=== PATIENT | male | born 1940 | race Caucasian/White ===

== ENCOUNTER 2022-07-08 11:31 | Inpatient (IN) | payer OTHER ==
[~2022-07-08] VITALS: Ht 193 cm; Wt 120.6 kg
[~2022-07-08 11:31] MED LIST: ASPI1TAB20 PO; HYDR-4296 PO; LOVA20TA4 PO; METO-159 PO; NIAC250T26 PO; OMEP20CA74 OR
[2022-07-08] MEDS ORDERED: ASPirin 81 mg TAB PO ONE (11:45)
[2022-07-08] MEDS ORDERED: dilTIAZem 25 MG/5 ML VIAL IV ONE ×2 (11:45→12:30)
[2022-07-08] MEDS: dilTIAZem HCL 50 MG/10 ML VIAL IV ONE ×2 (12:04→12:05)
[2022-07-08 12:12] LABS: Basophils # (auto) 0.1 10 ^3/uL (0-0.2); Basophils % (auto) 1.1 % (0.0-2.0); Eosinophils # (auto) 0 10 ^3/uL (0-0.8); Eosinophils % (auto) 0.2 % (0.0-7.0); Hematocrit 43.3 % (41.0-53.0); Hemoglobin 14.2 g/dL (13.5-17.5); Lymphocytes # (auto) 0.8 10 ^3/uL (0.4-5.4); Mean Corpuscular Hemoglobin 30.6 pg (28.0-32.0); Mean Corpuscular Hgb Conc. 32.8 g/dL (32.0-36.0); Mean Corpuscular Volume 93.4 fL (80.0-100.0); Monocytes % (auto) 8.4 % (0.0-12.0); Neutrophils # (auto) 10.1 10 ^3/uL (1.6-8.6); Neutrophils % (auto) 83.3 % (37.0-80.0); Nucleated Red Blood Cells % 0.1 %; Red Blood Cells 4.63 10^6/uL (4.5-5.90); Red Cell Distribution Width 15.7 % (11.8-14.3); White Blood Cell 12.1 10^3/uL (4.4-10.8)
[2022-07-08 12:30] LABS: INR 0.93 (0.9-1.15); Partial Thromboplastin Time 23.6 sec (24.6-33.4)
[2022-07-08] MEDS ORDERED: dilTIAZem 125mg/125ml BAG KIT 125 ML IV ONE (12:30)
[2022-07-08 12:31] LABS: Albumin 3.3 g/dL (3.4-5.0); Calcium 8.5 mg/dL (8.5-10.1); Magnesium 1.8 mg/dL (1.6-2.6); Potassium 3.8 mmol/L (3.5-5.1)
[2022-07-08 12:36] LABS: BUN/Creatinine Ratio 20.4; Bilirubin, Total 0.9 mg/dL (0.2-1.0); Total Protein 6.2 g/dL (6.4-8.2)
[2022-07-08 13:45] LABS: Urine Bacteria FEW /hpf (None Seen); Urine Blood Negative /uL (Negative); Urine Specific Gravity 1.017 (1.001-1.035); Urine WBC 67 /hpf (0 - 3)
[2022-07-08] MEDS ORDERED: LABETALOL HCL 200 MG TAB PO ONE (14:00)
[2022-07-08] MEDS ORDERED: cefTRIAXone 1GM/50ML D5W 50 ML IV ONE (14:00)
[2022-07-08] MEDS ORDERED: METOPROLOL SUCCINATE XL 50 MG TAB PO ONE (15:30)
[2022-07-08] MEDS ORDERED: OMEPRAZOLE 20MG/10ML ORAL SUSP PO ONE (15:30)
[2022-07-08] MEDS ORDERED: NITROGLYCERIN 0.4 MG SL TAB SL PRN (15:30)
[2022-07-08] MEDS: MORPHINE SULFATE INJ 2 MG/ml SYRG IV PRN ×2 (17:25→22:42)
[2022-07-08] MEDS: RIVAROXABAN 20 MG TAB PO SCH (17:54)
[2022-07-08] MEDS ORDERED: METOPROLOL SUCCINATE XL 50 MG TAB PO SCH (22:00)
[2022-07-08] MEDS: AMIODARONE HCL 200 MG TAB PO SCH (22:18)
[2022-07-09] VITALS (31 sets, daily range): BP systolic 90–170; BP diastolic 41–146
[2022-07-09] MEDS ORDERED: dilTIAZem 125mg/125ml BAG KIT 125 ML IV ONE ×2 (05:07→06:00)
[2022-07-09] MEDS ORDERED: dilTIAZem HCL 50 MG/10 ML VIAL IV ONE (05:07)
[2022-07-09] MEDS ORDERED: dilTIAZem 25 MG/5 ML VIAL IV ONE (05:15)
[2022-07-09] MEDS: AMIODARONE HCL 200 MG TAB PO SCH (09:31)
[2022-07-09] MEDS: METOPROLOL SUCCINATE XL 50 MG TAB PO SCH ×2 (09:33→21:14)
[2022-07-09] MEDS: DIGOXIN (250MCG/ML) 2 ML AMPULE IV SCH ×2 (14:37→21:13)
[2022-07-09 15:30] LABS: Basophils # (auto) 0.1 10 ^3/uL (0-0.2); Basophils % (auto) 0.8 % (0.0-2.0); Eosinophils # (auto) 0.1 10 ^3/uL (0-0.8); Eosinophils % (auto) 0.6 % (0.0-7.0); Hematocrit 41.6 % (41.0-53.0); Hemoglobin 13.6 g/dL (13.5-17.5); Lymphocytes # (auto) 1.3 10 ^3/uL (0.4-5.4); Lymphocytes % (auto) 9.5 % (10.0-50.0); Mean Corpuscular Hemoglobin 30.5 pg (28.0-32.0); Mean Corpuscular Hgb Conc. 32.6 g/dL (32.0-36.0); Mean Corpuscular Volume 93.8 fL (80.0-100.0); Monocytes # (auto) 1.3 10 ^3/uL (0-1.3); Monocytes % (auto) 9.2 % (0.0-12.0); Neutrophils # (auto) 10.9 10 ^3/uL (1.6-8.6); Neutrophils % (auto) 79.9 % (37.0-80.0); Red Blood Cells 4.44 10^6/uL (4.5-5.90); Red Cell Distribution Width 16.2 % (11.8-14.3); White Blood Cell 13.7 10^3/uL (4.4-10.8)
[2022-07-09 15:50] LABS: Albumin 2.9 g/dL (3.4-5.0); Calcium 8.9 mg/dL (8.5-10.1); Potassium 3.6 mmol/L (3.5-5.1)
[2022-07-09] MEDS ORDERED: AMIODARONE 450mg/250ml AE 250 ML IV SCH (16:15)
[2022-07-09] MEDS ORDERED: MAGNESIUM SULFATE 1GM/100ML 100 ML IV PRN (16:15)
[2022-07-09 16:17] LABS: BUN/Creatinine Ratio 17.6; Bilirubin, Total 0.9 mg/dL (0.2-1.0)
[2022-07-09] MEDS: HYDROcodone-ACET 5/325MG TAB PO PRN (16:55)
[2022-07-09] MEDS: FUROSEMIDE 20 MG/2 ML VIAL IV SCH (18:22)
[2022-07-09] MEDS: RIVAROXABAN 20 MG TAB PO SCH (18:23)
[2022-07-09] MEDS ORDERED: ACETAMINOPHEN 325 MG TAB PO PRN (20:30)
[2022-07-09] MEDS ORDERED: cefTRIAXone 1GM/50ML D5W 50 ML IV ONE (20:30)
[2022-07-09] MEDS: AMIODARONE 450mg/250ml AE 250 ML IV SCH (23:02)
[2022-07-10] VITALS (27 sets, daily range): BP systolic 101–165; BP diastolic 62–140
[2022-07-10] MEDS: HYDROcodone-ACET 5/325MG TAB PO PRN ×2 (04:50→18:10)
[2022-07-10 04:57] LABS: Basophils # (auto) 0.1 10 ^3/uL (0-0.2); Basophils % (auto) 0.6 % (0.0-2.0); Eosinophils # (auto) 0.2 10 ^3/uL (0-0.8); Eosinophils % (auto) 1.3 % (0.0-7.0); Hematocrit 41.2 % (41.0-53.0); Hemoglobin 13.7 g/dL (13.5-17.5); Lymphocytes # (auto) 1.2 10 ^3/uL (0.4-5.4); Lymphocytes % (auto) 9.6 % (10.0-50.0); Mean Corpuscular Hemoglobin 31.3 pg (28.0-32.0); Mean Corpuscular Hgb Conc. 33.2 g/dL (32.0-36.0); Mean Corpuscular Volume 94.1 fL (80.0-100.0); Monocytes % (auto) 8.2 % (0.0-12.0); Neutrophils # (auto) 10.2 10 ^3/uL (1.6-8.6); Neutrophils % (auto) 80.3 % (37.0-80.0); Nucleated Red Blood Cells % 0.1 %; Red Blood Cells 4.38 10^6/uL (4.5-5.90); Red Cell Distribution Width 16.1 % (11.8-14.3); White Blood Cell 12.7 10^3/uL (4.4-10.8)
[2022-07-10 05:07] LABS: Alanine Aminotransferase 24 U/L (16-61); Albumin 2.8 g/dL (3.4-5.0); Anion Gap 10 (5-15); Aspartate Aminotransferase 15 U/L (15-37); BUN/Creatinine Ratio 22.4; Blood Urea Nitrogen 17 mg/dL (7-18); Calcium 8.3 mg/dL (8.5-10.1); Carbon Dioxide 28 mmol/L (21-32); Chloride 99 mmol/L (98-107); GFR African American 127 mL/min; GFR Non-African American 105 mL/min; Glucose 113 mg/dL (74-106); Magnesium 2.2 mg/dL (1.6-2.6); Potassium 3.8 mmol/L (3.5-5.1); Sodium 137 mmol/L (136-145)
[2022-07-10 05:10] LABS: Alkaline Phosphatase 85 U/L (45-117); Bilirubin, Total 0.8 mg/dL (0.2-1.0); Total Protein 5.9 g/dL (6.4-8.2)
[2022-07-10] MEDS: FUROSEMIDE 20 MG/2 ML VIAL IV SCH ×2 (06:00→18:00)
[2022-07-10] MEDS: cefTRIAXone 1GM/50ML D5W 50 ML IV SCH (09:07)
[2022-07-10] MEDS: METOPROLOL SUCCINATE XL 50 MG TAB PO SCH (09:08)
[2022-07-10] MEDS: POTASSIUM CHL 20 Meq TABLET PO SCH (09:08)
[2022-07-10] MEDS: AMIODARONE 450mg/250ml AE 250 ML IV SCH (09:09)
[2022-07-10] MEDS: MORPHINE SULFATE INJ 2 MG/ml SYRG IV PRN ×2 (10:54→21:34)
[2022-07-10] MEDS ORDERED: FURO20TA3 PO (13:16)
[2022-07-10] MEDS ORDERED: TRAM50TA2 PO (13:16)
[2022-07-10] MEDS ORDERED: METO1TAB9 PO (13:16)
[2022-07-10] MEDS ORDERED: SIMV-8 PO (13:16)
[2022-07-10] MEDS ORDERED: POTA10TA32 PO (13:16)
[2022-07-10] MEDS ORDERED: HYDR25TA4 PO (13:16)
[2022-07-10] MEDS ORDERED: MIDAZOLAM HCL 2MG/2ML 2ml VIAL (1mg/ml) IV ONE (14:15)
[2022-07-10] MEDS ORDERED: MIDAZOLAM HCL 5 MG/ML-1ML VIAL ONE (14:19)
[2022-07-10] MEDS ORDERED: SOTALOL HCL 80 MG TAB PO ONE (14:45)
[2022-07-10] MEDS ORDERED: MIDAZOLAM HCL 2MG/2ML 2ml VIAL (1mg/ml) IM ONE (14:45)
[2022-07-10] MEDS: RIVAROXABAN 20 MG TAB PO SCH (18:07)
[2022-07-10] MEDS: SOTALOL HCL 80 MG TAB PO SCH (21:33)
[2022-07-11] VITALS (10 sets, daily range): BP systolic 85–117; BP diastolic 39–94
[2022-07-11] MEDS: HYDROcodone-ACET 5/325MG TAB PO PRN ×3 (02:06→19:59)
[2022-07-11 04:32] LABS: Basophils # (auto) 0.1 10 ^3/uL (0-0.2); Basophils % (auto) 0.6 % (0.0-2.0); Eosinophils # (auto) 0.3 10 ^3/uL (0-0.8); Hematocrit 40.1 % (41.0-53.0); Lymphocytes # (auto) 0.8 10 ^3/uL (0.4-5.4); Lymphocytes % (auto) 7.5 % (10.0-50.0); Mean Corpuscular Hemoglobin 30.6 pg (28.0-32.0); Mean Corpuscular Hgb Conc. 32.4 g/dL (32.0-36.0); Mean Corpuscular Volume 94.3 fL (80.0-100.0); Monocytes # (auto) 0.8 10 ^3/uL (0-1.3); Monocytes % (auto) 7.1 % (0.0-12.0); Neutrophils # (auto) 9.1 10 ^3/uL (1.6-8.6); Neutrophils % (auto) 81.8 % (37.0-80.0); Nucleated Red Blood Cells % 0.2 %; Red Blood Cells 4.25 10^6/uL (4.5-5.90); White Blood Cell 11.2 10^3/uL (4.4-10.8)
[2022-07-11 04:50] LABS: Albumin 2.4 g/dL (3.4-5.0); Calcium 8.4 mg/dL (8.5-10.1); Magnesium 2.4 mg/dL (1.6-2.6); Potassium 3.5 mmol/L (3.5-5.1)
[2022-07-11 04:53] LABS: BUN/Creatinine Ratio 23.3
[2022-07-11 04:56] LABS: Bilirubin, Total 0.5 mg/dL (0.2-1.0); Total Protein 6.3 g/dL (6.4-8.2)
[2022-07-11] MEDS: POTASSIUM CHL 20 Meq TABLET PO SCH (09:10)
[2022-07-11] MEDS: SOTALOL HCL 80 MG TAB PO SCH ×3 (09:11→21:27)
[2022-07-11] MEDS: FUROSEMIDE 20 MG/2 ML VIAL IV SCH (09:12)
[2022-07-11] MEDS: cefTRIAXone 1GM/50ML D5W 50 ML IV SCH (09:12)
[2022-07-11] MEDS ORDERED: POTASSIUM CHLORIDE 20 MEQ, LIDOCAINE 1% (LOCAL ANESTH.) 2 ML in SODIUM CHL 0.9% 100 ML IV ONE (09:30)
[2022-07-11] MEDS: MEROPENEM 1GM IVPB 100 ML IV SCH ×2 (16:00→23:08)
[2022-07-11] MEDS: RIVAROXABAN 20 MG TAB PO SCH (17:46)
[2022-07-11] MEDS: MAGNESIUM OXIDE 400 MG TAB PO SCH (22:45)
[2022-07-12] VITALS (16 sets, daily range): BP systolic 104–132; BP diastolic 59–97
[2022-07-12] MEDS: HYDROcodone-ACET 5/325MG TAB PO PRN ×2 (02:54→17:53)
[2022-07-12 04:42] LABS: Basophils # (auto) 0.1 10 ^3/uL (0-0.2); Basophils % (auto) 1.5 % (0.0-2.0); Eosinophils # (auto) 0.3 10 ^3/uL (0-0.8); Eosinophils % (auto) 3.6 % (0.0-7.0); Hematocrit 44.9 % (41.0-53.0); Hemoglobin 14.9 g/dL (13.5-17.5); Lymphocytes # (auto) 1.3 10 ^3/uL (0.4-5.4); Lymphocytes % (auto) 15.4 % (10.0-50.0); Mean Corpuscular Hemoglobin 30.9 pg (28.0-32.0); Mean Corpuscular Hgb Conc. 33.2 g/dL (32.0-36.0); Mean Corpuscular Volume 93.1 fL (80.0-100.0); Monocytes # (auto) 0.8 10 ^3/uL (0-1.3); Monocytes % (auto) 9.8 % (0.0-12.0); Neutrophils # (auto) 5.7 10 ^3/uL (1.6-8.6); Neutrophils % (auto) 69.7 % (37.0-80.0); Red Blood Cells 4.82 10^6/uL (4.5-5.90); Red Cell Distribution Width 15.6 % (11.8-14.3); White Blood Cell 8.2 10^3/uL (4.4-10.8)
[2022-07-12 04:50] LABS: Albumin 2.4 g/dL (3.4-5.0); Calcium 8.5 mg/dL (8.5-10.1); Magnesium 2.4 mg/dL (1.6-2.6); Potassium 4.1 mmol/L (3.5-5.1)
[2022-07-12 04:53] LABS: BUN/Creatinine Ratio 26.9; Bilirubin, Total 0.4 mg/dL (0.2-1.0); Total Protein 6.6 g/dL (6.4-8.2)
[2022-07-12] MEDS: MORPHINE SULFATE INJ 2 MG/ml SYRG IV PRN ×3 (06:10→23:23)
[2022-07-12] MEDS: MEROPENEM 1GM IVPB 100 ML IV SCH ×3 (06:17→21:39)
[2022-07-12] MEDS: MAGNESIUM OXIDE 400 MG TAB PO SCH ×2 (09:59→21:40)
[2022-07-12] MEDS: POTASSIUM CHL 20 Meq TABLET PO SCH (09:59)
[2022-07-12] MEDS: SOTALOL HCL 80 MG TAB PO SCH ×2 (10:01→21:40)
[2022-07-12] MEDS: DIGOXIN 0.25 MG TAB PO SCH (10:02)
[2022-07-12] MEDS: FUROSEMIDE 20 MG/2 ML VIAL IV SCH (10:04)
[2022-07-12 10:18] LABS: BUN/Creatinine Ratio 22.7; Calcium 8.5 mg/dL (8.5-10.1); Potassium 3.9 mmol/L (3.5-5.1)
[2022-07-12] MEDS: dilTIAZem HCL 60 MG TAB PO SCH ×2 (14:35→21:40)
[2022-07-12] MEDS ORDERED: RIV20T PO (17:29)
[2022-07-12] MEDS ORDERED: DIGO0.25 PO (17:29)
[2022-07-12] MEDS ORDERED: DILT60TA2 PO (17:29)
[2022-07-12] MEDS ORDERED: SOTA80TA20 PO (17:29)
[2022-07-12] MEDS: RIVAROXABAN 20 MG TAB PO SCH (18:24)
[2022-07-13] MEDS: HYDROcodone-ACET 5/325MG TAB PO PRN (01:09)
[2022-07-13 05:00] VITALS: BP 129/78
[2022-07-13] MEDS: MEROPENEM 1GM IVPB 100 ML IV SCH ×2 (05:33→14:00)
[2022-07-13] MEDS: dilTIAZem HCL 60 MG TAB PO SCH ×2 (05:39→14:00)
[2022-07-13 07:13] LABS: Basophils # (auto) 0.1 10 ^3/uL (0-0.2); Eosinophils # (auto) 0.2 10 ^3/uL (0-0.8); Eosinophils % (auto) 2.7 % (0.0-7.0); Hematocrit 40.3 % (41.0-53.0); Hemoglobin 13.3 g/dL (13.5-17.5); Lymphocytes # (auto) 1.2 10 ^3/uL (0.4-5.4); Lymphocytes % (auto) 16.4 % (10.0-50.0); Mean Corpuscular Hemoglobin 30.7 pg (28.0-32.0); Mean Corpuscular Hgb Conc. 33.1 g/dL (32.0-36.0); Mean Corpuscular Volume 92.9 fL (80.0-100.0); Monocytes # (auto) 0.7 10 ^3/uL (0-1.3); Monocytes % (auto) 9.7 % (0.0-12.0); Neutrophils # (auto) 5.3 10 ^3/uL (1.6-8.6); Neutrophils % (auto) 70.2 % (37.0-80.0); Nucleated Red Blood Cells % 0.1 %; Red Blood Cells 4.34 10^6/uL (4.5-5.90); Red Cell Distribution Width 15.7 % (11.8-14.3); White Blood Cell 7.5 10^3/uL (4.4-10.8)
[2022-07-13 07:36] LABS: Potassium 4.4 mmol/L (3.5-5.1)
[2022-07-13 07:45] LABS: BUN/Creatinine Ratio 27.1; Calcium 8.4 mg/dL (8.5-10.1)
[2022-07-13 08:00] VITALS: BP 115/74
[2022-07-13] MEDS ORDERED: NITR-52 PO (08:01)
[2022-07-13 09:00] VITALS: BP 115/74
[2022-07-13] MEDS: SOTALOL HCL 80 MG TAB PO SCH (09:04)
[2022-07-13] MEDS: DIGOXIN 0.25 MG TAB PO SCH (09:05)
[2022-07-13] MEDS: FUROSEMIDE 20 MG/2 ML VIAL IV SCH (09:05)
[2022-07-13] MEDS: MAGNESIUM OXIDE 400 MG TAB PO SCH (09:06)
[2022-07-13] MEDS: POTASSIUM CHL 20 Meq TABLET PO SCH (09:06)
[2022-07-13] MEDS: MORPHINE SULFATE INJ 2 MG/ml SYRG IV PRN (09:34)
[2022-07-13 12:29] VITALS: BP 115/74
[2022-07-13 13:00] VITALS: BP 115/81
== END 2022-07-13 13:00 | disposition home health service (06) | DRG 309 ==
LOC: EDBD 11:31 → ER 11:42 → TELE 15:28 → ICU WEST 07-09 08:50 → TELE-EAST 07-12 17:00
PROVIDERS: ADMIT Internal Medicine Cardiovascular Disease; ATTEND Internal Medicine Cardiovascular Disease
DX: I48.20 Chronic atrial fibrillation, unspecified (principal); I50.22 Chronic systolic (congestive) heart failure; N39.0 Urinary tract infection, site not specified; Z16.12 Extended spectrum beta lactamase (ESBL) resistance; I11.0 Hypertensive heart disease with heart failure; Z20.822 Contact with and (suspected) exposure to COVID-19; K21.9 Gastro-esophageal reflux disease without esophagitis; E87.6 Hypokalemia; Z86.73 Personal history of transient ischemic attack (TIA), and cerebral infarction without residual deficits
CPT/HCPCS: 36415; 71045; 80048; 80053; 80162; 81001; 83735; 83880; 84484; 85007; 85025; 85027; 85379; 85610; 85730; 86376; 86800; 87081; 87086; 87088; 87186; 93306; 96365; 96367; 96376; 99291; G0378; J0696; J2001; J2185; J2250

== ENCOUNTER 2022-07-24 09:02 | Inpatient (IN) | payer OTHER ==
[~2022-07-24] VITALS: Ht 193 cm; Wt 116.0 kg
[~2022-07-24 09:02] MED LIST changes: -ASPI1TAB20 PO; +DIGO0.25 PO; +DILT60TA2 PO; +FURO20TA3 PO; -HYDR-4296 PO; -LOVA20TA4 PO; -METO-159 PO; -NIAC250T26 PO; +NITR-52 PO; -OMEP20CA74 OR; +RIV20T PO; +SIMV-8 PO; +SOTA80TA20 PO; +TRAM50TA2 PO
[2022-07-24 10:40] LABS: Basophils # (auto) 0 10 ^3/uL (0-0.2); Basophils % (auto) 0.2 % (0.0-2.0); Eosinophils # (auto) 0.2 10 ^3/uL (0-0.8); Eosinophils % (auto) 2.4 % (0.0-7.0); Hemoglobin 13.6 g/dL (13.5-17.5); Lymphocytes # (auto) 1.1 10 ^3/uL (0.4-5.4); Lymphocytes % (auto) 14.8 % (10.0-50.0); Mean Corpuscular Hemoglobin 30.1 pg (28.0-32.0); Mean Corpuscular Hgb Conc. 33.9 g/dL (32.0-36.0); Mean Corpuscular Volume 88.6 fL (80.0-100.0); Monocytes # (auto) 0.2 10 ^3/uL (0-1.3); Monocytes % (auto) 2.9 % (0.0-12.0); Neutrophils # (auto) 6.1 10 ^3/uL (1.6-8.6); Neutrophils % (auto) 79.7 % (37.0-80.0); Nucleated Red Blood Cells % 0.2 %; Red Blood Cells 4.52 10^6/uL (4.5-5.90); Red Cell Distribution Width 15.8 % (11.8-14.3); White Blood Cell 7.6 10^3/uL (4.4-10.8)
[2022-07-24 10:44] LABS: Albumin 2.8 g/dL (3.4-5.0); Calcium 8.7 mg/dL (8.5-10.1); Potassium 3.5 mmol/L (3.5-5.1)
[2022-07-24 10:47] LABS: BUN/Creatinine Ratio 19.8; Bilirubin, Total 0.9 mg/dL (0.2-1.0); Total Protein 6.5 g/dL (6.4-8.2)
[2022-07-24 16:33] LABS: Urine Bacteria NONE SEEN /hpf (None Seen); Urine Blood Negative /uL (Negative); Urine Specific Gravity 1.011 (1.001-1.035); Urine WBC 1 /hpf (0 - 3)
[2022-07-24] MEDS ORDERED: ACETAMINOPHEN 325 MG TAB PO PRN (17:15)
[2022-07-24] MEDS ORDERED: ONDANSETRON HCL 4 MG/2 ML VIAL IV PRN (17:15)
[2022-07-24] MEDS ORDERED: DOCUSATE SOD 100 MG CAP PO PRN (17:15)
[2022-07-24] MEDS ORDERED: BISACODYL 10 MG RECT SUPP PR ONE (17:15)
[2022-07-24] MEDS: SODIUM CHLORIDE 0.9% 1,000 ML IV SCH (17:15)
[2022-07-24] MEDS ORDERED: MORPHINE SULFATE INJ 2 MG/ml SYRG IV PRN (17:15)
[2022-07-24] MEDS ORDERED: FLEET ENEMA(ADULT) 135 ML PR ONE (17:15)
[2022-07-24] MEDS ORDERED: FUROSEMIDE 20 MG TAB PO PRN (17:30)
[2022-07-24] MEDS ORDERED: ATORVASTATIN 20 MG TAB PO SCH (18:00)
[2022-07-24] MEDS ORDERED: RIVAROXABAN 20 MG TAB PO SCH (18:00)
[2022-07-24] MEDS ORDERED: INVANZ IM (18:13)
[2022-07-24] MEDS ORDERED: DILT40TA PO (18:13)
[2022-07-24] MEDS ORDERED: SPIR25TA PO (18:13)
[2022-07-24] MEDS ORDERED: IPRA0.00 IN (18:13)
[2022-07-24] MEDS ORDERED: FURO1TAB33 PO (18:13)
[2022-07-24] MEDS ORDERED: FUROSEMIDE 20 MG/2 ML VIAL IV ONE (18:15)
[2022-07-24] MEDS ORDERED: ERTAPENEM SOD INJ 1 GM in SODIUM CHL 0.9% 50 ML IV ONE (18:30)
[2022-07-24 18:34] LABS: Cholesterol 151 mg/dL (< 200); HDL Cholesterol 39 mg/dL (40-59); LDL Cholesterol 90 mg/dL (< 100); Triglycerides 161 mg/dL (< 150)
[2022-07-24] MEDS: SOTALOL HCL 80 MG TAB PO SCH (22:27)
[2022-07-24] MEDS: dilTIAZem HCL 60 MG TAB PO SCH (22:29)
[2022-07-25] VITALS: BP 114/71
[2022-07-25 01:14] VITALS: BP 114/71
[2022-07-25 05:00] VITALS: BP 121/78
[2022-07-25] MEDS: dilTIAZem HCL 60 MG TAB PO SCH (06:40)
[2022-07-25] MEDS: SODIUM CHLORIDE 0.9% 1,000 ML IV SCH (06:40)
[2022-07-25 06:54] LABS: Basophils # (auto) 0 10 ^3/uL (0-0.2); Basophils % (auto) 0.3 % (0.0-2.0); Eosinophils # (auto) 0.2 10 ^3/uL (0-0.8); Eosinophils % (auto) 3.2 % (0.0-7.0); Hematocrit 39.6 % (41.0-53.0); Lymphocytes # (auto) 1.4 10 ^3/uL (0.4-5.4); Lymphocytes % (auto) 20.8 % (10.0-50.0); Mean Corpuscular Hemoglobin 29.5 pg (28.0-32.0); Mean Corpuscular Volume 89.5 fL (80.0-100.0); Monocytes # (auto) 0.2 10 ^3/uL (0-1.3); Monocytes % (auto) 3.5 % (0.0-12.0); Neutrophils # (auto) 4.8 10 ^3/uL (1.6-8.6); Neutrophils % (auto) 72.2 % (37.0-80.0); Red Blood Cells 4.42 10^6/uL (4.5-5.90); Red Cell Distribution Width 16.1 % (11.8-14.3); White Blood Cell 6.6 10^3/uL (4.4-10.8)
[2022-07-25 07:07] LABS: Albumin 2.5 g/dL (3.4-5.0); Calcium 8.4 mg/dL (8.5-10.1); Potassium 3.2 mmol/L (3.5-5.1)
[2022-07-25 07:12] LABS: BUN/Creatinine Ratio 21.3; Bilirubin, Total 0.9 mg/dL (0.2-1.0); Total Protein 5.9 g/dL (6.4-8.2)
[2022-07-25 08:46] VITALS: BP 135/64
[2022-07-25] MEDS ORDERED: cefTRIAXone 1GM/50ML D5W 50 ML IV SCH (09:00)
[2022-07-25] MEDS ORDERED: DOCU-94 PO (09:22)
[2022-07-25] MEDS ORDERED: LACT10SO70 PO (09:22)
[2022-07-25] MEDS ORDERED: POLYETHYLENE GLYCOL 17 GM PWDR PO SCH (10:00)
[2022-07-25] MEDS ORDERED: DIGOXIN 0.25 MG TAB PO SCH (10:00)
[2022-07-25] MEDS ORDERED: ENOXAPARIN SOD 40 MG/0.4 ML SYRINGE SC SCH (10:00)
[2022-07-25] MEDS: LACTULOSE 20Gm/30ML SOLN PO SCH ×2 (10:00→10:14)
[2022-07-25] MEDS ORDERED: PANTOPRAZOLE 40 MG/10 ML VIAL INJ IV SCH (10:00)
[2022-07-25] MEDS: SOTALOL HCL 80 MG TAB PO SCH (10:14)
[2022-07-25 12:48] VITALS: BP 122/65
== END 2022-07-25 13:50 | disposition home health service (06) | DRG 392 ==
LOC: ER 09:02 → TELE 17:23 → TELE-WESTW 22:42
PROVIDERS: ADMIT Nurse Practitioner Family; ATTEND Hospitalist
DX: K59.00 Constipation, unspecified (principal); N39.0 Urinary tract infection, site not specified; I50.22 Chronic systolic (congestive) heart failure; E44.1 Mild protein-calorie malnutrition; E87.1 Hypo-osmolality and hyponatremia; I48.20 Chronic atrial fibrillation, unspecified; Z20.822 Contact with and (suspected) exposure to COVID-19; N40.1 Benign prostatic hyperplasia with lower urinary tract symptoms; R33.8 Other retention of urine; E78.5 Hyperlipidemia, unspecified; R00.1 Bradycardia, unspecified; I11.0 Hypertensive heart disease with heart failure; K80.20 Calculus of gallbladder without cholecystitis without obstruction; Z86.73 Personal history of transient ischemic attack (TIA), and cerebral infarction without residual deficits; Z79.01 Long term (current) use of anticoagulants; Z87.440 Personal history of urinary (tract) infections; Z87.891 Personal history of nicotine dependence
CPT/HCPCS: 36415; 74022; 74176; 80053; 80061; 80162; 81001; 83690; 84484; 85025; 87081; 87086; 93005; 96374; C9113; G0378; J1335